=== PATIENT | female | born 1970 | race Caucasian/White ===

== ENCOUNTER 2016-04-11 21:42 | Emergency (ER) | payer OTHER ==
[~2016-04-11] VITALS: Ht 160 cm; Wt 68.5 kg
[2016-04-11 21:46] VITALS: BP 125/88; PULSE 91; RESP 18; TEMP 97.9; O2SAT 97
--- NOTE | 2016-04-11 21:56 | PD ---
HPI . Left wrist pain for about an hour Chief Complaint: Injury Time Seen by Provider: 21:56 Travel History International Travel<30 days: No Contact w/Intl Traveler<30days: No Traveled to known affect area: No History of Present Illness HPI 45-year-old female who is a breast cancer survivor without any significant past medical history here with complaints of left wrist pain for about an hour after slipping and falling on an outstretched left wrist. Patient reports pain in the distal radius without any radiation. Pain is about 8/10. She denies any other injuries. PFSH Past Medical History Cancer: Yes (breast cancer survivor) Social History Alcohol Use: Yes Tobacco Use: No Allergies-Medications (Allergen,Severity, Reaction): Coded Allergies: No Known Allergies (Unverified , 04/11/16) Reported Meds & Prescriptions Reported Meds & Active Scripts Active Tramadol (Tramadol HCl) 50 Mg Tab 50 Mg PO Q6H PRN Review of Systems General / Constitutional: No: Fever Eyes: No: Visual changes HENT: No: Headaches Cardiovascular: No: Chest Pain or Discomfort Respiratory: No: Shortness of Breath Gastrointestinal: No: Abdominal Pain Genitourinary: No: Dysuria Musculoskeletal: Positive: Pain (left wrist ) Skin: No Rash Neurologic: No: Weakness Psychiatric: No: Depression Endocrine: No: Polydipsia Hematologic/Lymphatic: No: Easy Bruising Physical Exam Narrative GENERAL: AAO x 3, no acute distress, Well-nourished, well-developed patient. SKIN: Warm and dry. No visible rashes or bruising. HEAD: Normocephalic and atraumatic. EYES: No scleral icterus. No injection or drainage. ENT: No nasal drainage noted. Mucous membranes pink. Airway patent. NECK: Supple, trachea midline. No JVD. CARDIOVASCULAR: Regular rate and rhythm without murmurs, gallops, or rubs. RESPIRATORY: Breath sounds equal bilaterally. No accessory muscle use. No rhonchi or rales. GASTROINTESTINAL: Abdomen soft, non-tender, nondistended. EXTREMITIES: No cyanosis. Left wrist with + point tenderness in distal radius. Limited ROM due to pain. BACK: Nontender without obvious deformity. No CVA tenderness. PSYCH: AAO x 3, normal affect. Data Data Last Documented VS Vital Signs Date Time Temp Pulse Resp B/P Pulse Ox O2 Delivery O2 Flow Rate FiO2 04/11/16 21:55 04/11/16 21:46 97.9 91 18 97 Orders Wrist, Complete ([id number]) (04/11/16 21:57) Ketorolac Inj (Toradol Inj) (04/11/16 22:15) Support Splint (04/11/16 22:14) Sling Cradle Arm (04/11/16 ) Fiberglass Sugartong Sp Ad Arm (04/11/16 ) MDM Medical Decision Making Medical Screen Exam Complete: Yes Emergency Medical Condition: Yes Medical Record Reviewed: Yes Differential Diagnosis Wrist fracture, wrist contusion, Narrative Course 45-year-old female who is a breast cancer survivor without any significant past medical history here with complaints of left wrist pain for about an hour after slipping and falling on an outstretched left wrist. Patient reports pain in the distal radius without any radiation. Pain is about 8/10. She denies any other injuries. Patient seen and examined. Discussed with Dr. Moore Recommend left wrist x-ray. Definitive fracture of the left distal radius. Possible hairline of ulna. sugar tong splint and sling. Personally checked and in proper placement. Discussed that she will need to see orthopedic as soon as possible. She returns to [place] tomorrow and will f/u there. Patient given tramadol upon discharge for pain control. Patient verbalized understanding of instructions, questions were answered, and thanked me for their care. I advised them if their condition worsens, please return to the nearest emergency room for further care. Diagnosis Primary Impression: Distal radius fracture, left Qualified Code: S52.502A - Closed fracture of distal end of left radius, unspecified fracture morphology, initial encounter Referrals: Orthopedist Patient Instructions: General Instructions, Wrist Fracture in Adults (ED) Additional Instructions: Please return to emergency department if your symptoms return or worsen. Follow up with your primary care provider. Take medications as prescribed. You will need to follow-up with orthopedic on Wednesday. Please make an appointment at your earliest convenience. Med/Other Pt SpecificInfo: Prescription(s) given Scripts Tramadol 50 Mg Tab50 Mg PO Q6H PRN (PAIN) #15 TAB Ref 0 Prov:Js Moore MD 04/11/16 Disposition: 01 DISCHARGE HOME Condition: Stable Ivis Ramirez Apr 11, 2016 21:56
--- NOTE | 2016-04-11 22:12 | RADHPO ---
EXAM DATE/TIME: 04/11/2016 21:58 [facility] COMPARISON: No previous studies available for comparison. INDICATIONS : Left wrist pain post fall today. MEDICAL HISTORY : None. SURGICAL HISTORY : None. ENCOUNTER: Initial ACUITY: 1 day PAIN SCORE: 8/10 LOCATION: Left wrist. FINDINGS: Normal bone density. There is a mildly impacted transverse fracture noted through the distal radial m etaphysis without significant angulation or displacement. No obvious intra-articular involvement. CONCLUSION: Distal radius fracture. Solomon Marks MD on April 11, 2016 at 22:10 Board Certified Radiologist. This report was verified electronically.
[2016-04-11] MEDS ORDERED: KETOROLAC TROMETHAMINE 60 MG/2 ML (IM) VIAL IM ONE (22:15)
[2016-04-11] MEDS ORDERED: TRAM50TA PO (22:20)
== END 2016-04-11 22:48 | disposition home or self-care (01) ==
LOC: PHEFT 21:42
DX: S52.502A Unspecified fracture of the lower end of left radius, initial encounter for closed fracture (principal); Z85.3 Personal history of malignant neoplasm of breast; W01.0XXA Fall on same level from slipping, tripping and stumbling without subsequent striking against object, initial encounter; Y99.8 Other external cause status
CPT/HCPCS: 29125; 73110; 96372; 99283; J1885